=== PATIENT | female | born 1970 | race African-American/Black ===

== ENCOUNTER 2017-08-28 14:40 | Emergency (ER) | payer MEDICARE, MEDICAID ==
--- NOTE | 2017-08-28 15:19 | ER Document Report ---
ED General - General Chief Complaint: Abnormal Lab Results Stated Complaint: CHECK UP Time Seen by Provider: 08/28/17 14:51 Mode of Arrival: Ambulatory Information source: Patient Notes: 46-year-old female sent here from [place] [facility]. Patient notes she got into argument with daughter who ivc her, pt was at [facility] last night, transfused blood. pt notes she was asleep when this occurred I spoke with picker packer of [place] [facility] who requests blood work before they take her back TRAVEL OUTSIDE OF THE [place] IN LAST 30 DAYS: No - HPI Onset: Just prior to arrival Onset/Duration: Sudden Quality of pain: No pain Severity: None Pain Level: Denies Associated symptoms: None Exacerbated by: Denies Relieved by: Denies Similar symptoms previously: No Recently seen / treated by doctor: Yes - Related Data Allergies/Adverse Reactions: haloperidol [From Haldol] Allergy (Verified 08/28/17 15:16) lorazepam [From Ativan] Allergy (Verified 08/28/17 15:16) ziprasidone [From Geodon] Allergy (Verified 08/28/17 15:16) Past Medical History - Social History Smoking Status: Never Smoker Cigarette use (# per day): No Chew tobacco use (# tins/day): No Smoking Education Provided: No Family History: Reviewed & Not Pertinent Patient has suicidal ideation: No Patient has homicidal ideation: No Review of Systems - Review of Systems Notes: REVIEW OF SYSTEMS: CONSTITUTIONAL : Denies fever, chills, or sweats. Denies recent illness. EENT: Denies eye, ear, throat, or mouth pain or symptoms. Denies nasal or sinus congestion or discharge. Denies throat, tongue, or mouth swelling or difficulty swallowing. CARDIOVASCULAR: Denies chest pain. Denies palpitations or racing or irregular heart beat. Denies ankle edema. RESPIRATORY: Denies cough, cold, or chest congestion. Denies shortness of breath, difficulty breathing, or wheezing. GASTROINTESTINAL: Denies abdominal pain or distention. Denies nausea, vomiting , or diarrhea. Denies blood in vomitus, stools, or per rectum. Denies black, tarry stools. Denies constipation. GENITOURINARY: Denies difficulty urinating, painful urination, burning, frequency, blood in urine, or discharge. FEMALE GENITOURINARY: Denies vaginal bleeding, heavy or abnormal periods, irregular periods. Denies vaginal discharge or odor. MUSCULOSKELETAL: Denies back or neck pain or stiffness. Denies joint pain or swelling. SKIN: Denies rash, lesions or sores. HEMATOLOGIC : Denies easy bruising or bleeding. LYMPHATIC: Denies swollen, enlarged glands. NEUROLOGICAL: Denies confusion or altered mental status. Denies passing out or loss of consciousness. Denies dizziness or lightheadedness. Denies headache. Denies weakness or paralysis or loss of use of either side. Denies problems with gait or speech. Denies sensory loss, numbness, or tingling. Denies seizures. PSYCHIATRIC: Denies anxiety or stress. Denies depression, suicidal ideation, or homicidal ideation. ALL OTHER SYSTEMS REVIEWED AND NEGATIVE. PHYSICAL EXAMINATION: GENERAL: Well-appearing, well-nourished and in no acute distress. HEAD: Atraumatic, normocephalic. EYES: Pupils equal round and reactive to light, extraocular movements intact, conjunctiva are normal. ENT: Nares patent, oropharynx clear without exudates. Moist mucous membranes. NECK: Normal range of motion, supple without lymphadenopathy LUNGS: Breath sounds clear to auscultation bilaterally and equal. No wheezes rales or rhonchi. HEART: Regular rate and rhythm without murmurs ABDOMEN: Soft, nontender, nondistended abdomen. No guarding, no rebound. No masses appreciated. Female : deferred Musculoskeletal: Normal range of motion, no pitting or edema. No cyanosis. NEUROLOGICAL: Cranial nerves grossly intact. Normal speech, normal gait. Normal sensory, motor exams PSYCH: Normal mood, normal affect. SKIN: Warm, Dry, normal turgor, no rashes or lesions noted. Dictation was performed using [employer] voice recognition software Physical Exam - Vital signs Vitals: Pulse BP Pulse Ox 92 114/78 100 08/28/17 14:50 08/28/17 14:50 08/28/17 14:50 Course - Re-evaluation Re-evalutation: 08/28/17 15:19 Patient at this time has no complaints she is well spoken denies any suicidal homicidal ideations I will repeat blood work to evaluate her hemoglobin at this time 08/28/17 16:28 Patient's hemoglobin is 6.9, I will order to transfuse 2 units - Vital Signs Vital signs: Temp Pulse Resp BP Pulse Ox 92 114/78 100 08/28/17 14:50 08/28/17 14:50 08/28/17 14:50 - Laboratory Result Diagrams: 08/28/17 15:30 08/28/17 15:30 Laboratory results interpreted by me: 08/28/17 08/28/17 15:30 15:30 Hgb 6.9 L Hct 23.4 L MCV 57 L MCH 16.8 L MCHC 29.5 L RDW 21.1 H Monocytes % (Manual) 2 L Crossmatch See Detail
[2017-08-28 16:12] LABS: HEMATOCRIT 23.4 % (36.0-47.0); MEAN CORPUSCULAR HEMOGLOBIN 16.8 pg (27.0-33.4); MEAN CORPUSCULAR HGB CONC 29.5 g/dL (32.0-36.0); PLATELET COUNT 366 10^3/uL (150-450); RED BLOOD COUNT 4.11 10^6/uL (3.72-5.28); RED CELL DISTRIBUTION WIDTH 21.1 % (11.5-14.0); WHITE BLOOD COUNT 5.5 10^3/uL (4.0-10.5)
[2017-08-28] MEDS ORDERED: NORMAL SALINE 250 ML IV PRN ×2 (16:27)
[2017-08-28 16:29] LABS: ALANINE AMINOTRANSFERASE 24 U/L (9-52); ALBUMIN 4.4 g/dL (3.5-5.0); ALKALINE PHOSPHATASE 58 U/L (38-126); ANION GAP 11 (5-19); ASPARTATE AMINO TRANSFERASE 26 U/L (14-36); BILIRUBIN,DIRECT 0.2 mg/dL (0.0-0.4); BILIRUBIN,TOTAL 0.2 mg/dL (0.2-1.3); BLOOD UREA NITROGEN 14 mg/dL (7-20); CALCIUM 9.9 mg/dL (8.4-10.2); CARBON DIOXIDE 24 mmol/L (22-30); CHLORIDE 105 mmol/L (98-107); GLUCOSE 108 mg/dL (75-110); POTASSIUM 3.9 mmol/L (3.6-5.0); SODIUM 140.2 mmol/L (137-145); TOTAL PROTEIN 7.9 g/dL (6.3-8.2)
[2017-08-28 16:55] LABS: ABSOLUTE LYMPHOCYTES# (MANUAL) 1.9 10^3/uL (0.5-4.7); ABSOLUTE MONOCYTES # (MANUAL) 0.1 10^3/uL (0.1-1.4); ABSOLUTE NEUTROPHILS# (MANUAL) 3.5 10^3/uL (1.7-8.2); BASOPHILS % (MANUAL) 0 % (0-2); EOSINOPHILS % (MANUAL) 0 % (0-6); LYMPHOCYTES % (MANUAL) 34 % (13-45); MONOCYTES % (MANUAL) 2 % (3-13); SEGMENTED NEUTROPHILS % (MAN) 64 % (42-78); TOTAL CELLS COUNTED 100
[2017-08-28 16:57] LABS: ANISOCYTOSIS 2+; PLATELET COMMENT ADEQUATE
[2017-08-28 16:59] LABS: OVALOCYTES SLIGHT; POIKILOCYTOSIS SLIGHT; TARGET CELLS SLIGHT
--- NOTE | 2017-08-28 16:59 | ER Document Report ---
ED General <ROSALBATAE STEWART - Last Filed: 08/31/17 07:06> - General Mode of Arrival: Ambulatory TRAVEL OUTSIDE OF THE [place] IN LAST 30 DAYS: No <EYAL GLYNN - Last Filed: 08/31/17 07:25> - General Chief Complaint: Abnormal Lab Results Stated Complaint: CHECK UP Time Seen by Provider: 08/28/17 14:51 - HPI Notes: 46-year-old female with a history of schizophrenia as well as recent IVC at [facility] last night presents today from [facility] for repeat blood work for rule out GI bleed due to hematocrit of 23.4 and hemoglobin is 6.9. Patient did receive a transfusion at [facility] last night, and then was transferred to [facility]. Since patient had abnormal laboratory findings at [facility], they would like her reevaluate. After transfusion, [facility] will accept patient back without any issues pending she does not have a GI bleed. patient reports dizziness, states this is because she has not eaten and states "I don't trust any of you and the blood here is contaminated", Patient Denies fevers, chills, chest pain,palpitations, shortness of breath, dyspnea, nausea, vomiting, diarrhea, abdominal pain, hematuria,blurred vision, double vision, loss of vision, speech changes, syncope, headaches, wheezing, ST , URI, neck pain, weakness, bowel or bladder dysfunction, saddle anesthesia, numbness or tingling in bilateral upper or lower extremities equally, muscle paralysis, weakness in bilateral upper or lower extremities equally or rash. ( EYAL GLYNN) - Related Data Allergies/Adverse Reactions: haloperidol [From Haldol] Allergy (Verified 08/28/17 15:16) lorazepam [From Ativan] Allergy (Verified 08/28/17 15:16) ziprasidone [From Geodon] Allergy (Verified 08/28/17 15:16) Past Medical History - General Information source: Patient - Social History Smoking Status: Never Smoker Cigarette use (# per day): No Chew tobacco use (# tins/day): No Frequency of alcohol use: None Drug Abuse: None Family History: Reviewed & Not Pertinent Patient has suicidal ideation: No Patient has homicidal ideation: No Renal/ Medical History: Denies: Hx Peritoneal Dialysis <EYAL GLYNN - Last Filed: 08/31/17 07:25> Review of Systems <TAE MASON - Last Filed: 08/31/17 07:06> <EYAL GLYNN - Last Filed: 08/31/17 07:25> - Review of Systems Notes: REVIEW OF SYSTEMS: CONSTITUTIONAL : Denies fever, chills, or sweats. Denies recent illness. EENT: Denies eye, ear, throat, or mouth pain or symptoms. Denies nasal or sinus congestion or discharge. Denies throat, tongue, or mouth swelling or difficulty swallowing. CARDIOVASCULAR: Denies chest pain. Denies palpitations or racing or irregular heart beat. Denies ankle edema. RESPIRATORY: Denies cough, cold, or chest congestion. Denies shortness of breath, difficulty breathing, or wheezing. GASTROINTESTINAL: Denies abdominal pain or distention. Denies nausea, vomiting , or diarrhea. Denies blood in vomitus, stools, or per rectum. Denies black, tarry stools. Denies constipation. GENITOURINARY: Denies difficulty urinating, painful urination, burning, frequency, blood in urine, or discharge. FEMALE GENITOURINARY: Denies vaginal bleeding, heavy or abnormal periods, irregular periods. Denies vaginal discharge or odor. MUSCULOSKELETAL: Denies back or neck pain or stiffness. Denies joint pain or swelling. SKIN: Denies rash, lesions or sores. HEMATOLOGIC : Denies easy bruising or bleeding. LYMPHATIC: Denies swollen, enlarged glands. NEUROLOGICAL: Denies confusion or altered mental status. Denies passing out or loss of consciousness. Denies dizziness or lightheadedness. Denies headache. Denies weakness or paralysis or loss of use of either side. Denies problems with gait or speech. Denies sensory loss, numbness, or tingling. Denies seizures. PSYCHIATRIC: Denies anxiety or stress. Denies depression, suicidal ideation, or homicidal ideation. ALL OTHER SYSTEMS REVIEWED AND NEGATIVE. PHYSICAL EXAMINATION: GENERAL: Well-appearing, well-nourished and in no acute distress. HEAD: Atraumatic, normocephalic. EYES: Pupils equal round and reactive to light, extraocular movements intact, conjunctiva are normal. ENT: Nares patent, oropharynx clear without exudates. Moist mucous membranes. NECK: Normal range of motion, supple without lymphadenopathy LUNGS: Breath sounds clear to auscultation bilaterally and equal. No wheezes rales or rhonchi. HEART: Regular rate and rhythm without murmurs ABDOMEN: Soft, nontender, nondistended abdomen. No guarding, no rebound. No masses appreciated. Female : deferred Musculoskeletal: Normal range of motion, no pitting or edema. No cyanosis. NEUROLOGICAL: Cranial nerves grossly intact. Normal speech, normal gait. Normal sensory, motor exams SKIN: Warm, Dry, normal turgor, no rashes or lesions noted. Dictation was performed using [email or web address] voice recognition software (EYAL GLYNN ) Physical Exam - Psychological Associated symptoms: Angry, Anxious, Uncooperative <EYAL GLYNN - Last Filed: 08/31/17 07:25> - Vital signs Vitals: Pulse BP Pulse Ox 92 114/78 100 08/28/17 14:50 08/28/17 14:50 08/28/17 14:50 Course - Laboratory Result Diagrams: 08/29/17 03:18 08/28/17 15:30 <TAE MASON - Last Filed: 08/31/17 07:06> - Laboratory Result Diagrams: 08/29/17 03:18 08/28/17 15:30 <EYAL GLYNN - Last Filed: 08/31/17 07:25> - Re-evaluation Re-evalutation: Patient re-evaluated. Alert, eating and drinking, no significant change from prior. Vital signs with no significant change. No transfusion reaction. Hemoglobin now 9.1. Medically stable, still under IVC at currently at [facility] , patient will be transferred back. (TAE MASON) 46-year-old female with a history of schizophrenia presents today for hematocrit of 23.4 and hemoglobin of 6.9 after given a transfusion yesterday at [facility]. Patient was IVCD at [facility], transferred to [facility] psychiatric facility, due to abnormal labs, [facility] would like her reevaluated , receive a transfusion of bleeding return back to that facility. Since patient is IVC and requires a life saving therapy. Dr. Ken Luis, psychologist on-call, consulted to verify the patient is IVC'd while she was at [facility] last night, which is legally binding for 7 days in total. His vitals remained stable. Patient remains afebrile. She was unsure of her allergy to have. Haldol due to agitation as well as Benadryl. On reevaluation 45 minutes later, patient remained afebrile, vitals remained stable. guaiac stool still pending. Report given to MELVIN Celis at 1914 08/31/17 07:24 (EYAL GLYNN) - Vital Signs Vital signs: Temp Pulse Resp BP Pulse Ox 97.9 F 71 18 142/88 H 100 08/29/17 07:45 08/29/17 01:50 08/29/17 07:00 08/29/17 07:00 08/29/17 07:00 - Laboratory Laboratory results interpreted by me: 08/28/17 08/28/17 08/29/17 15:30 15:30 03:18 Hgb 6.9 L 9.1 L D Hct 23.4 L 29.6 L MCV 57 L 63 L D MCH 16.8 L 19.3 L MCHC 29.5 L 30.6 L RDW 21.1 H 28.9 H Monocytes % (Manual) 2 L Crossmatch See Detail Discharge <TAE MASON - Last Filed: 08/31/17 07:06> <EYAL GLYNN - Last Filed: 08/31/17 07:25> - Discharge Clinical Impression: Anemia Qualifiers: Anemia type: unspecified type Qualified Code(s): D64.9 - Anemia, unspecified Condition: Stable Disposition: HOME, SELF-CARE Additional Instructions: There is no blood in your stool tonight. Your repeat hemoglobin after blood transfusion tonight is 9.1. Follow-up with primary care for additional evaluation and management. Return to emergency department for any concerning or worsening symptoms including passing out, difficulty breathing, blood in stool, vomiting blood, or any other concerning or worsening symptoms.
[2017-08-28 17:00] LABS: PLATELET LARGE PRESENT
[2017-08-28 17:02] LABS: HEMOGLOBIN 6.9 g/dL (12.0-15.5); MEAN CORPUSCULAR VOLUME 57 fl (80-97)
[2017-08-28] MEDS ORDERED: HALOPERIDOL LACTATE INJ 5 MG/1 ML VIAL IV ONE (17:21)
[2017-08-28] MEDS ORDERED: DIPHENHYDRAMINE HCL 50 MG/ML VIAL IV ONE (17:21)
[2017-08-28] MEDS ORDERED: MIDAZOLAM 2 MG/2 ML INJ IV ONE (18:25)
[2017-08-29 03:29] LABS: HEMATOCRIT 29.6 % (36.0-47.0); MEAN CORPUSCULAR HEMOGLOBIN 19.3 pg (27.0-33.4); MEAN CORPUSCULAR HGB CONC 30.6 g/dL (32.0-36.0); PLATELET COUNT 346 10^3/uL (150-450); RED BLOOD COUNT 4.69 10^6/uL (3.72-5.28); RED CELL DISTRIBUTION WIDTH 28.9 % (11.5-14.0); WHITE BLOOD COUNT 5.1 10^3/uL (4.0-10.5)
[2017-08-29 03:30] LABS: HEMOGLOBIN 9.1 g/dL (12.0-15.5); MEAN CORPUSCULAR VOLUME 63 fl (80-97)
[2017-08-29 07:19] VITALS: BP 142/88
[2017-08-29 14:45] LABS: PATH REVIEW PATHOLOGIST REVIEWED
== END 2017-08-29 07:54 | disposition home or self-care (01) ==
LOC: ER 14:40
DX: D58.2 Other hemoglobinopathies (principal); R42 Dizziness and giddiness
CPT/HCPCS: 99284; 96374; 96375; 86900; 86901; 36415; 36430; 86850; 85025; 85027; 82272; 80053; 86920; P9016; J2250; J1200; J1630; J7050